=== PATIENT | female | born 1990 | race Two or more races ===

== ENCOUNTER 2020-12-24 06:30 | Day surgery (SDC) | payer OTHER ==
[~2020-12-24 06:30] MED LIST: HUMLOG
== END 2020-12-24 16:37 | disposition home or self-care (01) ==
LOC: CIR.AMB 06:30
PROVIDERS: ATTEND Orthopaedic Surgery Hand Surgery
DX: S63.498A Traumatic rupture of other ligament of other finger at metacarpophalangeal and interphalangeal joint, initial encounter (principal); Z20.822 Contact with and (suspected) exposure to COVID-19